=== PATIENT | female | born 1955 | race Two or more races ===

== ENCOUNTER → 2022-07-21 | Emergency (ER) | payer OTHER ==
[~2022-07-21] VITALS: Ht 167.6 cm; Wt 126.1 kg
[~2022-07-21] MED LIST: CARDIZEM60 MG; ECOTRIN81 MG; PLAVIX75 MG; VITAMIN C500 M5
== END | disposition left against medical advice (07) ==
LOC: ER 13:07
DX: Z53.21 Procedure and treatment not carried out due to patient leaving prior to being seen by health care provider (principal)